=== PATIENT | female | born 1975 | race Caucasian/White ===

== ENCOUNTER 2019-12-11 11:58 | Emergency (ER) | payer BC ==
[2019-12-11 12:11] VITALS: BP 112/71
[2019-12-11] MEDS ORDERED: PROPARACAINE 0.5% OPHTH DROPS 15 ML RIGHTEYE STA (12:19)
[2019-12-11] MEDS ORDERED: ERYTHROMYCIN OPHTH OINT 1 GM TUBE LEFTEYE STA (12:47)
--- NOTE | 2019-12-11 12:49 | ED Physician Documentation ---
History of Present Illness - Stated complaint Stated Complaint: L EYE PX - Chief complaint Chief Complaint: Heent - History obtained from History obtained from: Patient - History of Present Illness Timing: How many hours ago (24) - Additonal information Additional information: 44-year-old female presents to the emergency department with acute left eye discomfort. She reports working in her garden yesterday and accidentally poking her left eye with a tomato plant. She has had discomfort, clear drainage and pain since then this morning. She reports that this a.m. her eye was swollen shut and she was able to improve the swelling using an ice pack. She feels a foreign body sensation under the left lid. She does not wear contact lenses or corrective lenses. No history of similar. She denies vision changes, or photophobia Review of Systems Constitutional: reports: Reviewed and negative Eyes: reports: Discharge, Irritation. denies: Loss of vision, Decreased vision, Photophobia Ears: reports: Reviewed and negative Nose: reports: Reviewed and negative Throat: reports: Reviewed and negative Cardiac: reports: Reviewed and negative Respiratory: reports: Reviewed and negative GI: reports: Reviewed and negative : reports: Reviewed and negative PD PAST MEDICAL HISTORY - Past Medical History Past Medical History: No - Past Surgical History Past Surgical History: No - Present Medications Home Medications: Ambulatory Orders Medication Instructions Recorded Confirmed Erythromycin Base [Erythromycin 1 gm OP QID #1 tube 12/11/19 Ophthalmic Ointment] - Allergies Allergies/Adverse Reactions: Allergies Allergy/AdvReac Type Severity Reaction Status Date / Time No Known Drug Allergies Allergy Verified 12/11/19 12:11 - Social History Does the pt smoke?: No Smoking Status: Never smoker Does the pt drink ETOH?: Yes Does the pt have substance abuse?: No - Immunizations Immunizations are current?: Yes - POLST Patient has POLST: No PD ED PE EXPANDED - General General: Alert, In Pain - Eyes Eyes: Left eye (No foreign body seen with eyelid eversion. There is a corneal abrasion at 3:00 on the left eye.), Nl conjunctiva/sclera, Corneal abrasion (3 oclock left eye). No: Eyelid injury, Eyelid swelling, Eyelid erythema, No eyelid FB (everted), Eyelid embedded FB, Conj/sclera FB, Subconj hemorrhage, Scleral icterus Results - Vitals Vitals: Vital Signs - 24 hr 12/11/19 12:07 Temperature 36.5 C Heart Rate 73 Respiratory 14 Rate Blood Pressure 112/71 O2 Saturation 97 Oxygen O2 Source Room air PD MEDICAL DECISION MAKING - ED course Complexity details: re-evaluated patient, considered differential, d/w patient ED course: 44-year-old female presents to the emergency department with acute left eye pain after she hit her left eye with a tomato plant yesterday in the garden. On exam she does have a very small corneal abrasion at 3:00 on the left eye. Eversion of the eyelid did not reveal any foreign body. Patient will be placed on erythromycin ointment 4 times a day for the next week. 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 Departure - Departure Disposition: 01 Home, Self Care Clinical Impression: Corneal abrasion, left Qualifiers: Encounter type: initial encounter Qualified Code(s): S05.02XA - Injury of conjunctiva and corneal abrasion without foreign body, left eye, initial encounter Condition: Stable Record reviewed to determine appropriate education?: Yes Instructions: ED Eye Injury Corneal Abrasion Prescriptions: Erythromycin Base [Erythromycin Ophthalmic Ointment] 1 gm OP QID #1 tube Comments: You do have an abrasion to the cornea of your left eye. Please apply the antibiotic ointment to your left eye 4 times a day for the next week. I would like you to schedule a follow-up appointment with your look out tower fire watcher or advertising writer to ensure that this is fully resolved. Return to the emergency department for reevaluation if your symptoms do not improve with the ointment. Please avoid dabbing or rubbing your eyes. If discomfort is not improved over the next few hours place a cool compress over the eye.
== END 2019-12-11 12:58 | disposition home or self-care (01) ==
LOC: ED 11:58
DX: S05.02XA Injury of conjunctiva and corneal abrasion without foreign body, left eye, initial encounter (principal); W22.8XXA Striking against or struck by other objects, initial encounter; Y93.H2 Activity, gardening and landscaping; Y92.007 Garden or yard of unspecified non-institutional (private) residence as the place of occurrence of the external cause
CPT/HCPCS: 99282; 99283; J3490